=== PATIENT | female | born 2000 | race Two or more races ===

== ENCOUNTER 2020-02-25 22:12 | Emergency (ER) | payer OTHER ==
[2020-02-25 22:34] VITALS: BP 122/70
[2020-02-25] MEDS ORDERED: IBUPROFEN 400 MG TABLET PO ONE (22:54)
--- NOTE | 2020-02-25 22:55 | ER Document Report ---
ED Medical Screen (RME) - General Chief Complaint: Shoulder Pain Stated Complaint: LEFT SHOULDER/ARM PAIN Time Seen by Provider: 02/25/20 22:51 Mode of Arrival: Ambulatory Notes: Patient states she was walking the dog and the dog pulled suddenly jerking her left arm. Patient states her had her right arm at the time. Patient denies any fall. Patient is right-hand dominant. I have greeted and performed a rapid initial assessment of this patient. A comprehensive ED assessment and evaluation of the patient, analysis of test results and completion of the medical decision making process will be conducted by additional ED providers. Physical Exam - Vital signs Vitals: Temp Pulse Resp BP Pulse Ox 98.8 F 109 H 20 122/70 98 02/25/20 22:32 02/25/20 22:32 02/25/20 22:32 02/25/20 22:32 02/25/20 22:32 - General General appearance: Appears well, Alert Notes: Left shoulder joint tenderness, 2+ radial pulse, no obvious dislocation Course - Vital Signs Vital signs: Temp Pulse Resp BP Pulse Ox 98.8 F 109 H 20 122/70 98 02/25/20 22:32 02/25/20 22:32 02/25/20 22:32 02/25/20 22:32 02/25/20 22:32
--- NOTE | 2020-02-25 23:38 | RADIOLOGY REPORT (SQ) ---
EXAM DESCRIPTION: XR SHOULDER 2 OR MORE VIEWS COMPLETED DATE/TME: 02/25/2020 22:53 CLINICAL HISTORY: 19 years, Female, L shoulder injury, dog pulled leash COMPARISON: None. NUMBER OF VIEWS: 3 TECHNIQUE: 3 views left shoulder LIMITATIONS: None. FINDINGS: Negative for acute fracture or dislocation. Soft tissues are unremarkable IMPRESSION: Negative exam copyright 2011 [employer]- All Rights Reserved
== END 2020-02-26 03:24 | disposition left against medical advice (07) ==
LOC: ER 22:12
DX: M25.512 Pain in left shoulder (principal); X50.0XXA Overexertion from strenuous movement or load, initial encounter; Y93.K1 Activity, walking an animal; Z53.20 Procedure and treatment not carried out because of patient's decision for unspecified reasons
CPT/HCPCS: 99281

== ENCOUNTER 2020-03-02 08:31 | Emergency (ER) | payer OTHER ==
[2020-03-02 08:38] VITALS: BP 134/87
--- NOTE | 2020-03-02 09:58 | ER Document Report ---
ED General - General Chief Complaint: Arm Pain Stated Complaint: SHOULDER/ARM PAIN Time Seen by Provider: 03/02/20 09:37 Primary Care Provider: ANANYA HARE MD [ACTIVE STAFF] - Follow up as needed KERRY DELGADO MD [ACTIVE STAFF] - Follow up as needed Mode of Arrival: Ambulatory Information source: Patient - HPI Notes: 19-year-old female with a history of anxiety presents emergency room today for complaints of left shoulder, elbow, wrist pain for approximately 6 days after she had a leash wrapped around her wrist and was pulled by a 75 pound dog, since that time she has had worsening pain. Patient denies falling onto left shoulder or extremity. Patient states that her caught her before she fell. Patient was seen in the emergency room a week ago, imaging was done of her shoulder which was negative. Patient did follow-up with [facility] which took a another image of her shoulder which came out negative. Patient states she did buy an [id number] sling, has been using IBU without full relief. States pain has become worse, 4 out of 5. Patient states that sometimes her arm goes "purple" since having her incident. 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 Last menstrual cycle was 3 weeks ago. denies fevers, chills, chest pain,palpitations, shortness of breath, dyspnea, nausea, vomiting, diarrhea, abdominal pain, hematuria,blurred vision, double vision, loss of vision, speech changes, LH, dizziness, syncope, headaches, wheezing, ST, URI, neck pain, weakness, bowel or bladder dysfunction, saddle anesthesia, numbness or tingling in bilateral upper or lower extremities equally, muscle paralysis, weakness in bilateral upper or lower extremities equally or rash. Denies IV drug use. MEDICATIONS: I agree with the patient medications as charted by the RN. ALLERGIES: I agree with the allergies as charted by the RN. PAST MEDICAL HISTORY/PAST SURGICAL HISTORY: Reviewed and agree as charted by RN. SOCIAL HISTORY: Reviewed and agree as charted by RN. FAMILY HISTORY: No significant familial comorbid conditions directly related to patient complaint EXAM: Reviewed vital signs as charted by RN. REVIEW OF SYSTEMS:reviewed vital signs by RN CONSTITUTIONAL : Denies fever, chills, or sweats. Denies recent illness. EENT: Denies eye, ear, throat, or mouth pain or symptoms. Denies nasal or sinus congestion or discharge. Denies throat, tongue, or mouth swelling or difficulty swallowing. CARDIOVASCULAR: Denies chest pain. Denies palpitations or racing or irregular heart beat. Denies ankle edema. RESPIRATORY: Denies cough, cold, or chest congestion. Denies shortness of breath, difficulty breathing, or wheezing. GASTROINTESTINAL: Denies abdominal pain or distention. Denies nausea, vomiting, or diarrhea. Denies blood in vomitus, stools, or per rectum. Denies black, tarry stools. Denies constipation. GENITOURINARY: Denies difficulty urinating, painful urination, burning, frequency, blood in urine, or discharge. FEMALE GENITOURINARY: Denies vaginal bleeding, heavy or abnormal periods, irregular periods. Denies vaginal discharge or odor. MUSCULOSKELETAL: Denies back or neck pain or stiffness. Denies joint pain or swelling. SKIN: Denies rash, lesions or sores. HEMATOLOGIC : Denies easy bruising or bleeding. LYMPHATIC: Denies swollen, enlarged glands. NEUROLOGICAL: Denies confusion or altered mental status. Denies passing out or loss of consciousness. Denies dizziness or lightheadedness. Denies headache. Denies weakness or paralysis or loss of use of either side. Denies problems with gait or speech. Denies sensory loss, numbness, or tingling. Denies seizures. PSYCHIATRIC: Denies anxiety or stress. Denies depression, suicidal ideation, or homicidal ideation. ALL OTHER SYSTEMS REVIEWED AND NEGATIVE. PHYSICAL EXAMINATION: GENERAL: Well-appearing, well-nourished and in no acute distress. HEAD: Atraumatic, normocephalic. EYES: Pupils equal round and reactive to light, extraocular movements intact, conjunctiva are normal. ENT: Nares patent, oropharynx clear without exudates. Moist mucous membranes. NECK: Normal range of motion, supple without lymphadenopathy LUNGS: Breath sounds clear to auscultation bilaterally and equal. No wheezes rales or rhonchi. HEART: Regular rate and rhythm without murmurs ABDOMEN: Soft, nontender, nondistended abdomen. No guarding, no rebound. No masses appreciated. Female : deferred Musculoskeletal: Normal range of motion, no pitting or edema. No cyanosis. NEUROLOGICAL: Cranial nerves grossly intact. Normal speech, normal gait. Normal sensory, motor exams PSYCH: Normal mood, normal affect. SKIN: Warm, Dry, normal turgor, no rashes or lesions noted. Cap refill less than 3 seconds bilaterally to upper extremities. Skin is warm to touch bilateral upper extremities. Left shoulder pain with abduction and flexion. slight pain with supination, pronation, extension of left elbow. tenderness to left wrist, postive snuffbox sign on left. Evp General Counsel + 2 BUE equally. APROM in shoulder. DTR +2 in BUE equally. Noted crepitus with APROM in elbow. negative drop arm, neer sign, pérez test bilaterally. slightly positive impingement sign all on left. No vascular compromise. Neck with full APROM, no cervical spinal tenderness. No tenderness over clavicles or step off noted bilaterally. Strength 5 out of 5 in bilateral upper extremities equally. Negative kanavels sign. No open wounds or drainage from wrist. No body crepitus or focal area of TTP. Limited ROM with flexion, extension, ulnar/radial deviation. Motor and sensory function of ulnar, radial, medial nerves intact bilaterally and equally. Dictation was performed using [employer] recognition software - Related Data Allergies/Adverse Reactions: Penicillins Allergy (Verified 02/25/20 23:05) Past Medical History - General Information source: Patient - Social History Smoking Status: Current Every Day Smoker Family History: Reviewed & Not Pertinent Patient has homicidal ideation: No Physical Exam - Vital signs Vitals: Temp Pulse Resp BP Pulse Ox 98.5 F 114 H 16 134/87 H 100 03/02/20 08:36 03/02/20 08:36 03/02/20 08:36 03/02/20 08:36 03/02/20 08:36 Course - Re-evaluation Re-evalutation: 03/02/20 15:43 19-year-old female, afebrile vital stable no distress. Heart rate did normalize once in her room. CT of left upper extremity negative for acute fracture, lesion, completely unremarkable. Discussed with patient that she does not have any occult fractures in her left upper extremity. Discussed with patient that she does have a strain of her left shoulder and a sprain of her left wrist. Patient placed in a use sling as well as a left cock up splint. Consent by patient given to place cock up splint,. cms intact, sensory motor function intact in bilateral upper extremities prior to splint application fiberglass splint placed without incident. cms intact 20 minutes after splint application. Splint is in good alignment. Bilateral upper extremities with motor and sensory function intact 20 minutes after application. Pt stated that splint felt comfortable. follow up with water treatment specialist within 3 days. After performing a Medical Screening Examination, I estimate there is LOW risk for OPEN FRACTURE, COMPARTMENT SYNDROME, TENDON RUPTURE, ACUTE NEUROVASCULAR INJURY, or RETAINED FOREIGN BODY, thus I consider the discharge disposition reasonable. Also, there is no evidence or peritonitis, sepsis, or toxicity. I have reevaluated this patient multiple times and no significant life threatening changes are noted. The patient and I have discussed the diagnosis and risks, and we agree with discharging home with close follow-up with the understanding that symptoms and presentations can change. We also discussed returning to the Emergency Department immediately if new or worsening symptoms occur. We have discussed the symptoms which are most concerning (e.g., changing or worsening pain, fever, numbness, weakness, cool or painful digits) that necessitate immediate return. - Vital Signs Vital signs: Temp Pulse Resp BP Pulse Ox 98.5 F 114 H 16 134/87 H 99 03/02/20 09:37 03/02/20 08:36 03/02/20 08:36 03/02/20 08:36 03/02/20 12:00 Discharge - Discharge Clinical Impression: Left arm pain Left wrist sprain Qualifiers: Encounter type: subsequent encounter Qualified Code(s): S63.502D - Unspecified sprain of left wrist, subsequent encounter Left shoulder strain Qualifiers: Encounter type: subsequent encounter Qualified Code(s): S46.912D - Strain of unspecified muscle, fascia and tendon at shoulder and upper arm level, left arm, subsequent encounter Condition: Stable Disposition: HOME, SELF-CARE Instructions: Exercise Program for the Shoulder ([facility]), Shoulder Injury ([facility]), Sprain ([facility]), Wrist Sprain ([facility]), Temporary Sling ([facility]) Additional Instructions: CT of your left extremity was negative for any acute fracture, dislocation, bone lesion. You were given a sling. Follow-up with primary care provider and water treatment specialist within next 24 to 48 hours. Jglu-[id number] ibuprofen and Tylenol as needed for pain. Return immediately for any new or worsening symptoms. Follow up with primary care provider, call tomorrow to make followup appointment. Forms: Return to Work Referrals: ANANYA HARE MD [ACTIVE STAFF] - Follow up as needed KERRY DELGADO MD [ACTIVE STAFF] - Follow up as needed
--- NOTE | 2020-03-02 11:16 | RADIOLOGY REPORT (SQ) ---
EXAM DESCRIPTION: CT LT UPPER EXTREMITY WITHOUT IMAGES COMPLETED DATE/TIME: 03/02/2020 11:04 am REASON FOR STUDY: L arm pain, r/o occult fx in wrist/shoulder COMPARISON: 02/25/2020 TECHNIQUE: Axial imaging performed through the leftshoulder with reformatted oblique coronal and obl ique sagittal imaging windowed for bone and soft tissues. All CT scanners at this facility use dose modulation, iterative reconstruction, and/or weight based d osing when appropriate to reduce radiation dose to as low as reasonably achievable (ALARA). [facility]: Dose Right [facility]: CareDose [facility]: Dose Right [facility]: Teradose 4D [facility]: [employer] RADIATION DOSE: CT Rad equipment meets quality standard of care and radiation dose reduction techniq ues were employed. CTDIvol: 2.7 mGy. DLP: 185 mGy-cm. mGy. LIMITATIONS: None. FINDINGS: SOFT TISSUES: No edema, hematoma, focal fluid collection, mass, or retained radiopaque for eign body. BONY ARCHITECTURE: Normal mineralization and alignment. GLENOHUMERAL JOINT: Normal alignment. No joint effusion. ACROMION AND AC JOINT: Normal alignment. No effusion. ROTATOR CUFF: Grossly normal muscle bulk. GLENOID, LABRUM AND BICEPS: Poorly characterized in the absence of intra-articular contrast ; no seco ndary findings of injury. OTHER: No other significant finding. IMPRESSION: No evidence of subacute or healing osseous injury. TECHNICAL DOCUMENTATION: JOB ID: [id number] Quality ID # [id number]: Final reports with documentation of one or more dose reduction techniques (e.g., Au tomated exposure control, adjustment of the mA and/or kV according to patient size, use of iterative reconstruction technique) 2010 [employer]- All Rights Reserved Reading location - IP/workstation name: [email or web address]
== END 2020-03-02 12:25 | disposition home or self-care (01) ==
LOC: ER 08:31
DX: S46.912D Strain of unspecified muscle, fascia and tendon at shoulder and upper arm level, left arm, subsequent encounter (principal); S63.502D Unspecified sprain of left wrist, subsequent encounter; M25.512 Pain in left shoulder; M25.522 Pain in left elbow; M25.532 Pain in left wrist; X50.0XXA Overexertion from strenuous movement or load, initial encounter; F17.200 Nicotine dependence, unspecified, uncomplicated; Z88.0 Allergy status to penicillin
CPT/HCPCS: 81025; 99283